=== PATIENT | male | born 1980 | race African-American/Black ===

== ENCOUNTER → 2020-05-23 08:50 | Outpatient (BNVA) | payer OTHER, SELFPAY | PROVIDERS: PCP Family Medicine; Visit Provider Nurse Practitioner | DX: Z76.89 Persons encountering health services in other specified circumstances (principal) ==

== ENCOUNTER → 2020-07-24 09:15 | Outpatient (BNVA) | payer OTHER, SELFPAY | PROVIDERS: PCP Family Medicine; Visit Provider Nurse Practitioner ==

== ENCOUNTER → 2020-10-07 09:55 | Outpatient (BNVA) | payer OTHER, SELFPAY | PROVIDERS: PCP Family Medicine; Visit Provider Nurse Practitioner ==

== ENCOUNTER 2020-11-05 10:36 | Outpatient (REF) | payer OTHER, SELFPAY ==
[2020-11-05 12:10] LABS: MANUAL DIFF FLAG NO
[2020-11-05 12:15] LABS: Basophils Absolute Auto 0.1 X10*3/uL (0.0-0.2); Basophils Percent Auto 0.7 % (0-2); Eosinophils Absolute Auto 0.3 X10*3/uL (0.0-0.4); Eosinophils Percent Auto 3.8 % (0-4); Hematocrit 39.8 % (42-52); Hemoglobin 13.4 g/dl (14.0-18.0); Imm Gran Abs Auto 0.02 X10*3/uL (0.00-0.03); Imm Gran Pct Auto 0.3 % (0.0-0.4); Lymphocytes Absolute Auto 3.3 X10*3/uL (1.2-4.9); Lymphocytes Percent Auto 44.5 % (20-40); Mean Corpuscular HGB Conc 33.7 g/dl (31.0-36.0); Mean Corpuscular Hemoglobin 30.3 pg (27.0-33.0); Mean Platelet Volume 9.8 fL (9.4-12.4); Monocytes Absolute Auto 0.4 X10*3/uL (0.1-1.2); Monocytes Percent Auto 5.9 % (2-11); Neutrophils Absolute Auto 3.3 X10*3/uL (2.0-8.3); Neutrophils Percent Auto 44.8 % (45-73); Platelet Count 302 X10*3/uL (160-400); Red Blood Count 4.42 X10*6/uL (4.60-5.80); Red Cell Distribution Width 12.9 % (11.0-16.0); White Blood Count 7.4 X10*3/uL (4.8-10.8)
[2020-11-05 12:35] LABS: D Dimer < 200 NG/ML
[2020-11-05 12:37] LABS: Alanine Aminotransferase 24 U/L (0-40); Albumin Level 4.1 g/dL (3.5-5.0); Alkaline Phosphatase 71 U/L (39-117); Anion Gap 10 (12-20); Aspartate Amino Transferase 16 U/L (5-37); Bilirubin Total 0.6 mg/dL (0.0-1.0); Blood Urea Nitrogen 8 mg/dL (9-16); Calcium 9.1 mg/dL (8.4-10.2); Carbon Dioxide 29 mmol/L (22-29); Chloride 104 mmol/L (96-108); Estimated Glomerular Filt Rate > 60; Glucose Random 91 mg/dL (60-115); Potassium 4.4 mmol/L (3.3-5.1); Sodium 139 mmol/L (135-145)
[2020-11-05 12:44] LABS: B Type Natriuretic Peptide < 10 pg/mL (<100)
[2020-11-05 12:57] LABS: TSH reflex Free T4 2.55 uIU/mL (0.32-4.0)
== END 2020-11-05 10:37 | disposition home or self-care (01) ==
LOC: HO.LAB 10:36
PROVIDERS: PCP Family Medicine; Referring Provider Family Medicine; Visit Provider Nurse Practitioner
DX: R10.13 Epigastric pain (principal); R11.2 Nausea with vomiting, unspecified; K59.00 Constipation, unspecified; K29.50 Unspecified chronic gastritis without bleeding; R63.4 Abnormal weight loss; E13.9 Other specified diabetes mellitus without complications; M79.89 Other specified soft tissue disorders
CPT/HCPCS: 36415; 80053; 83880; 84443; 85025; 85379; 99202

== ENCOUNTER → 2020-12-02 15:21 | Outpatient (BNVA) | payer OTHER, SELFPAY | PROVIDERS: Visit Provider Nurse Practitioner ==

== ENCOUNTER → 2021-01-09 15:51 | Outpatient (BNVA) | payer OTHER, SELFPAY | PROVIDERS: Visit Provider Nurse Practitioner ==

== ENCOUNTER → 2021-02-17 16:01 | Outpatient (BNVA) | payer OTHER, SELFPAY | PROVIDERS: Visit Provider Nurse Practitioner ==

== ENCOUNTER 2021-04-08 09:39 | Day surgery (SDC) | payer OTHER, SELFPAY ==
--- NOTE | 2021-04-07 14:07 | P.CONAN_ITS ---
Documented by User: Keeley Betancourt NP 04/07/21 14:13 HPI - Anesthesia Eval Consult details Narrative: 40yo M for Colonoscopy Methadone daily PMFSH Active Problems Active Problems: All Active Problems (Updated 04/03/21 @ 12:10 by Yasmeen Yuan RN) Chronic gastritis (Acute) Epigastric pain (Acute) Nausea and vomiting (Acute) Weight loss (Acute) Polydipsia (Acute) Polyuria (Acute) Leg swelling (Acute) Diabetes (Acute) Chronic idiopathic constipation (Acute) Family history of malignant neoplasm of colon in relative diagnosed when younger than 50 years of age (Acute) Past Medical History Medical History (Updated 04/03/21 @ 12:10 by Yasmeen Yuan RN) Constipation Hiatal hernia Hx of gastritis Methadone use Smoker Varicose vein of leg Family History Family History Father HTN (hypertension) Mother Diabetes Heart problem Surgical History Surgical History (Updated 04/03/21 @ 12:04 by Yasmeen Yuan RN) History of esophagogastroduodenoscopy (EGD) Hx of facial fracture repair Social History Social History Household Members: Spouse and Children Household Members Other:: spouse, 3 children Alcohol intake: never Patient Tobacco Use Status: Current everyday Tobacco user Tobacco use type: Cigarette Cigarette Packs Per Day: 1 Cigarettes Per Day: 20.0 Years Smoked: 25 Smoked in Last 30 Days: Yes Use of substances other than those prescribed or required for medical reasons: Yes Substance Use Type: Marijuana Substance Use Frequency: Daily Are you DNR?: No Advance Directives: No Advance Directives Information Provided: No Current occupational status: unemployed Meds Allergies Allergy/AdvReac Type Severity Reaction Status Date / Time Vicodin Allergy Unknown sweating,vo Verified 02/17/21 16:01 miting Home Medications Medication Instructions Recorded Confirmed Last Taken Type docusate sodium 100 mg capsule 1 cap PO DAILY 04/03/21 04/03/21 Unknown History methadone 10 mg/mL oral concentrate 85 mg PO DAILY 04/03/21 04/03/21 04/08/21 History Exam Exam Date and Time: April 07, 2021 1407 Pertinent Lab Results Pertinent Lab Results: Laboratory Tests 11/05/20 11/05/20 11:42 11:42 WBC 7.4 Hgb 13.4 L Hct 39.8 L Plt Count 302 Sodium 139 Potassium 4.4 Chloride 104 Carbon Dioxide 29 BUN 8 L Creatinine 1.02 Assessment and Plan Assessment Anesthesia Assessment: Chart Reviewed Documented by User: Shay Lombardi MD 04/08/21 10:17 [facility] Past Medical History Medical History (Updated 04/03/21 @ 12:10 by Yasmeen Yuan RN) Constipation Hiatal hernia Hx of gastritis Methadone use Smoker Varicose vein of leg Family History Family History Father HTN (hypertension) Mother Diabetes Heart problem Surgical History Surgical History (Updated 04/03/21 @ 12:04 by Yasmeen Yuan RN) History of esophagogastroduodenoscopy (EGD) Hx of facial fracture repair Social History Social History Household Members: Spouse and Children Household Members Other:: spouse, 3 children Alcohol intake: never Patient Tobacco Use Status: Current everyday Tobacco user Tobacco use type: Cigarette Cigarette Packs Per Day: 1 Cigarettes Per Day: 20.0 Years Smoked: 25 Smoked in Last 30 Days: Yes Use of substances other than those prescribed or required for medical reasons: Yes Substance Use Type: Marijuana Substance Use Frequency: Daily Are you DNR?: No Advance Directives: No Advance Directives Information Provided: No Current occupational status: unemployed Meds Allergies Allergy/AdvReac Type Severity Reaction Status Date / Time Vicodin Allergy Unknown sweating,vo Verified 02/17/21 16:01 miting Home Medications Medication Instructions Recorded Confirmed Last Taken Type docusate sodium 100 mg capsule 1 cap PO DAILY 04/03/21 04/03/21 Unknown History methadone 10 mg/mL oral concentrate 85 mg PO DAILY 04/03/21 04/03/21 04/08/21 History Exam Airway Mallampati Class: II TM Dist: >3cm Neck ROM: Full
--- NOTE | 2021-04-08 09:42 | MHC.SHP ---
Pre-Procedural Eval Section A Date of Service: 04/08/21 Section B Chief Complaint: family hx of malignant neplasm of colon in relati Relevant Family History (Specify if Yes): No Relevant Social History: Other (specify) (THC and smoking) Present Medications: see Short Stay Collaborative assessment Medical History: Significant History (Constipation Hiatal hernia Hx of gastritis Methadone use Smoker Varicose vein of leg) History of Previous Operations: Relevant previous surgery/procedure and date(s) (facial fracture repair) Allergies: Allergies Allergy/AdvReac Type Severity Reaction Status Date / Time Vicodin Allergy Unknown sweating,vo Verified 02/17/21 16:01 miting Review of Systems Sugical H&P ROS: Negative: Constitution, Cardiovascular, Respiratory, Neurological, Psychiatric, Hem-Onc, Allergic/Immunologic, Gastrointestinal, Genitourinary, Musculoskeletal, Integumentary, Endocrine and Eyes/Ears/Nose/Throat Exam Surgical H&P Exam: Normal: HEENT, Normal: Heart, Normal: Lungs, Normal: Extremities, Normal: Abdomen, Normal: Skin and Normal: Neurological Plan Diagnosis/Plan: Unchanged I have reviewed the history and physical and performed a pertinent physical examination on my patient. No changes have occurred unless specified.
[2021-04-08 09:51] VITALS: BP 146/69; PULSE 66; RESP 16; TEMP 36.4; O2SAT 97; BMI 36.9
[2021-04-08] MEDS: Lactated Ringers 1,000 ML 100 ML IVCONT (10:14)
--- NOTE | 2021-04-08 10:53 | P.BOP_ITS ---
Brief Operative Note Date of Service: 04/08/21 Pre-op diagnosis: screening, high risk due to FH of CRC in mother Post-op diagnosis: same Procedure: see op note Surgeon: Ophelia Arreola MD Anesthesia: MAC Was an Forge Shop Machine Repairer used for this Procedure?: No Estimated blood loss (mL): 0 Condition: stable Disposition: PACU
--- NOTE | 2021-04-08 10:53 | W.PM.OPN ---
Operative Note Operative Note Date of Service: 04/08/21 Narrative: Operative Information Procedure Description: Colonoscopy COLONOSCOPY Instrument: Olympus variable stiffness pediatric scope 190L Colonoscopy Monitoring: Vital signs and clinical assessment, continuous EKG monitoring, Pulse oximetry, Carbon Dioxide monitoring and blood pressure monitoring were done throughout the procedure. Colon withdrawal time was 11 minutes. Procedure: The patient was placed in the left lateral decubitis position and pre-procedure medications were administered. After a digital rectal examination of the ano-rectum, the video colonoscope was inserted into the rectum and advanced through the colon to the cecum/TI. The colonoscope was slowly withdrawn in a retrograde panoramic fashion and the colon mucosa was carefully examined including a retroflexed view of the rectum. Findings and interventions are described below. Procedure Difficulty:easy Findings: Terminal Ileum-normal Cecum:normal Ascending Colon: few small diverticula seen Transverse Colon -normal Descending Colon:normal Sigmoid Colon: normal Rectum: Retroflexion with small internal hemorrhoids, grade I Anorectum - normal Colon preparation: Mcnabb Bowel Preparation Scale Right colon; 1 Transverse colon: 2 Left colon; 2 (0 = Unprepared colon segment with mucosa not seen due to solid stool that cannot be cleared. 1 = Portion of mucosa of the colon segment seen, but other areas of the colon segment not well seen due to staining, residual stool and/or opaque liquid. 2 = Minor amount of residual staining, small fragments of stool and/or opaque liquid, but mucosa of colon segment seen well. 3 = Entire mucosa of colon segment seen well with no residual staining, small fragments of stool or opaque liquid) Impression and Post Procedure Diagnosis: internal hemorrhoids diverticular disease Plan: High fiber diet leaflet Avoid straining at stool, epsom salts and sitz bath, anusol supps or cream Repeat Colonoscopy in 3 years due to right sided prep or earlier if clinically indicated Above findings were reviewed with the patient and relevant handouts were provided if indicated.
[2021-04-08 10:59] VITALS: BP 97/51; PULSE 70; RESP 12; TEMP 36.3; O2SAT 93
[2021-04-08 11:26] VITALS: BP 105/66; PULSE 67; RESP 16; TEMP 36.3; O2SAT 96
== END 2021-04-08 12:21 | disposition home or self-care (01) ==
PROVIDERS: PCP Family Medicine; Visit Provider Internal Medicine Gastroenterology
PROC: 0DJD8ZZ Inspection of Lower Intestinal Tract, Via Natural or Artificial Opening Endoscopic (ICD-10-PCS; CPT 45378; principal; 2021-04-08 11:00)
DX: Z12.11 Encounter for screening for malignant neoplasm of colon (principal); Z80.0 Family history of malignant neoplasm of digestive organs; K57.30 Diverticulosis of large intestine without perforation or abscess without bleeding; K64.0 First degree hemorrhoids; K59.04 Chronic idiopathic constipation; K29.50 Unspecified chronic gastritis without bleeding; Z79.899 Other long term (current) drug therapy; Z88.8 Allergy status to other drugs, medicaments and biological substances; F17.210 Nicotine dependence, cigarettes, uncomplicated
CPT/HCPCS: 45378

== ENCOUNTER 2023-03-08 10:58 | Outpatient (AMB) | payer OTHER, SELFPAY ==
--- NOTE | 2023-03-08 11:01 | MHC.PC.OV ---
Vital Signs 03/08/23 11:04 Height 5 ft 9 in Weight 220 lb 8 oz BMI 32.6 BP 126/82 Blood Pressure Location Rt brachial Position Sitting Respiration 12 Pulse 68 Pulse Source Pulse Oximeter Temp 97.8 F Temp Source Temporal Artery Scan Pulse Oximetry (%) 99 Oxygen Delivery Method Room Air Intake Visit Reasons: EST CARE Intake Note: Patient states that he believes something is wrong with his shoulder. Patient states that he has restriction in movement in his right arm and when he tries to bend or move it a certain way it hurts. Patient states that when anything touches his leg its like his skin starts peeling. Patient states that he was itching his leg yesterday and it led to him having a open cut on leg. Patient also states that he has random jitters that sometimes takes a while to subside. Patient states that he has also been experiencing cramping in legs. Patient also wanted it yo be known that diabetes runs in family and he does not know if any of his complaints are stemmed from possible diabetes. 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 Accompanied by: Self / Same As Patient Allergies acetaminophen [From Vicodin] Allergy (Unknown, Verified 03/08/23 11:17) Sweating, vomiting hydrocodone [From Vicodin] Allergy (Unknown, Verified 03/08/23 11:17) Sweating, vomiting Medication List - Last Reviewed 03/08/23 by Emely Rivas MA methadone 68 mg PO DAILY Tobacco use date assessed: 03/08/23 Dental Screening Dental Screen Date: 03/08/23 Did you have a dental visit in the last 12 months?: No Did you have a dental problem in the last 6 months where you did not have access to dental care?: No Was dental information given to patient?: Patient has dentist HPI HPI Comments History of Present Illness Details 42-year-old male presents to [facility] care He note he was last evaluated by his former PCP 2-3 years ago. His last blood work was in 2020 He has h/o chronic gastritis. No acute symptoms or current medications. 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 He is currently on 68 mg of methadone daily. He goes to [facility]. He reports intermittent soreness to his right shoulder, worst with ROM for the past 3-4 months. He states he was evaluated at an urgent care clinic at the onset of his symptoms and was given stretching exercise instructions which have not been effective. He denies acute symptoms at this time. 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 He reports history of anxiety and depression. He notes he has not taking psychotropic medications or see a therapist or psychiatrist in the past 26-27 years. He states sertraline was effective. He notes skin tear to the skin of his right wiley from scratching the area. He reports intermittent itching to the skin of her bilateral lower extremity. He states he has been smoking approximately 10 cigarettes daily for the past 25 years. He states he is sexually active, in a monogamous relationship, no concerns for STD. He had colonoscopy done at [facility] on 04/2023 with the following results: Impression and Post Procedure Diagnosis: internal hemorrhoids diverticular disease The plan was to follow up with GI in 3 years. FMH: Mother - diabetes, thyroid disease, colon cancer, HTN [facility] Medical History (Updated 03/08/23 @ 12:09 by Kamaljit Choi CNP) Constipation Hiatal hernia Hx of gastritis Methadone use Smoker Varicose vein of leg Surgical History (Updated 04/03/21 @ 12:04 by Yasmeen Yuna RN) History of esophagogastroduodenoscopy (EGD) Hx of facial fracture repair Family History Father HTN (hypertension) Mother Diabetes Heart problem Social History Household Members: Spouse and Children Household Members Other:: spouse, 3 children Housing: Apartment Alcohol intake: never Patient Tobacco Use Status: Current everyday Tobacco user Tobacco use type: Cigarette Cigarette Packs Per Day: 0.5 Cigarettes Per Day: 10 Years Smoked: 25 Substance Use Type: Marijuana service: No Current occupational status: employed 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 1. Little interest or pleasure in doing things: several days 2. Feeling down, depressed, or hopeless: several days 3. Trouble falling or staying asleep, or sleeping too much: not at all 4. Feeling tired or having little energy: several days 5. Poor appetite or overeating: nearly every day (Poor appetite) 6. Feeling bad about yourself - or that you are a failure or have let yourself or your family down: several days 7. Trouble concentrating on things, such as reading the newspaper or watching television: not at all 8. Moving or speaking so slowly that other people could have noticed. Or the opposite - being so fidgety or restless that you have been moving around a lot more than usual: not at all 9. Thoughts that you would be better off or of hurting yourself in some way: not at all Total score: 7 Depression Screening Interpretation: Positive Depression Screening Follow-up: Existing condition and New Medication prescribed Source: Developed by Drs. Miguel Dhillon, Sol Sheldon, Blaine Garvin and colleagues, with an educational batsheva from [email or web address] Thrive Questionnaire Date Thrive assessed: 03/08/23 I am a: Patient What is your living situation today?: I have a steady place to live Within the past 12 months, did the food you bought not last and you didn't have the money to get more?: Never true Within the past 12 months, did you worry whether your food would run out before you got money to buy more?: Never true Do you have trouble paying for medicines?: No Do you have trouble getting transportation to medical appointments?: No Do you have trouble paying your heating and electricity bill?: No Do you have trouble taking care of your child, family member or friend?: No Do you have trouble with day-to-day activities such as bathing, preparing meals, shopping, managing finances, etc.?: No Are you currently unemployed and looking for a job?: No Are you interested in more education?: No Please select the resources that you would like help with: None Currently or been in a relationship where the following occur: no concerns reported AUDIT C Alcohol Use Questionnaire (AUDIT-C) 1. How often do you have a drink containing alcohol?: Never 3. How often do you have six or more drinks on one occasion?: Never Total Score: 0 ROSMERY-7 AMB Questionnaire ROSMERY-7 Date ROSMERY - 7 assessed: 03/08/23 Feeling nervous, anxious, or on edge: 1 = Several days Not being able to stop or control worryin = Nearly every day Worrying too much about different things: 3 = Nearly every day Trouble relaxin = Nearly every day Being so restless that it is hard to sit still: 2 = More than half the days Becoming easily annoyed or irritable: 0 = Not at all Feeling afraid as if something awful might happen: 2 = More than half the days Total ROSMERY-7 score (0-4 normal; 5-9 mild; 10-14 moderate; 15-21 severe): 14 Source: Developed by Drs. Miguel Dhillon, Sol Sheldon, Blaine Garvin and colleagues, with an educational batsheva from [email or web address] Review of Systems Const Details: Denies chills, Denies fatigue, Denies fever(s), Denies headache(s) and Denies weakness HEENT Denies change in vision, Denies dizziness, Denies headache(s), Denies hearing loss, Denies nasal congestion, Denies sinus pain, Denies sinus pressure and Denies sore throat Card Denies chest pain, Denies lightheadedness, Denies dyspnea and Denies other (palpitations) Resp Denies cough, Denies dyspnea and Denies wheezing GI Denies abdominal pain, Denies melena, Denies hematochezia, Denies change in bowel habits, Denies dyspepsia and Denies nausea Denies hematuria and Denies dysuria Musc Denies abnormal gait, Denies myalgias, Denies arthralgias, Denies numbness and Denies tingling Skin/Breast Reports skin tear to his right wiley, Denies rash, and Denies unusual bruising Neuro Denies abnormal gait, Denies dizziness, Denies headache(s), Denies memory loss, Denies numbness, Denies Sensory deficit (Neuro), Denies tingling and Denies weakness Psych Reports anxiety, Reports depression and Denies memory loss Endo Denies cold intolerance, Denies fatigue, Denies heat intolerance, Denies polydipsia and Denies polyuria Alex/Lymph Denies easy bleeding and Denies easy bruising Aller/Immun Denies wheezing Physical exam (Primary Care) Vital Signs: Last Vital Signs Temp 97.8 F 03/08/23 11:04 Pulse 68 03/08/23 11:04 Resp 12 03/08/23 11:04 BP 126/82 03/08/23 11:04 Pulse Ox 99 03/08/23 11:04 Oxygen Delivery Method Room Air 03/08/23 11:04 BMI result Body Mass Index 32.6 Tobacco/Smoking Status: Tobacco use Status Patient Tobacco Use Status Current everyday Tobacco 04/08/21 10:56 Tobacco use type Cigarette 04/08/21 09:51 Depression Screening Interpretation: Positive Depression Screening Follow-up: Existing condition and New Medication prescribed Currently or been in a relationship where the following occur: no concerns reported Const Other: General: no acute distress, well developed, alert and awake Nutritional Appearance: well nourished Orientation/consciousness: patient oriented x3 HENMT Head: Yes normocephalic and Yes atraumatic Ears: hearing grossly normal bilaterally and TM's normal bilaterally General nose exam: Normal external nose present and Normal nares present Mouth: Normal oral and palatal mucosa present and moist mucous membranes Teeth and gingiva: Full upper denture. No teeth to lower gum. Normal gum Throat: Yes oropharynx normal Eyes Pupils: Equal, round and reactive pupils present and Pupil accommodation reflex normal EOM: EOMs intact bilaterally Neck Neck: Yes normal visual inspection, Yes no lymphadenopathy and Yes trachea midline Thyroid: Thyroid normal Carotids: no bruits Lymphatic: no lymphadenopathy noted Chest Chest palpation & inspection: normal inspection of the chest Resp Effort & Inspection: normal respiratory effort Auscultation: clear to auscultation bilaterally Cardio Rate: regular rate Rhythm: regular rhythm Heart sounds: S1 normal heart sound present, S2 normal heart sound present, no gallops, no murmurs and no rubs Bruits: no abdominal aortic bruits and no carotid bruits GI Palpation (GI): No Abdominal aortic bruit present, Soft to palpation, nontender, No hepatosplenomegaly present and No Rebound tenderness present Auscultation: normal bowel sounds General: Yes no CVA tenderness Back/Spine/Pelvis Back: no CVA tenderness Cervical Spine: cervical ROM normal and No Cervical spine tenderness Thoracic/Lumbar Spine: thoraco-lumbar ROM normal, No pain with thoraco-lumbar ROM, No thoracic spinal tenderness and No lumbar spinal tenderness Skin General: warm and dry. Normal skin color. Normal skin turgor Lesions: no lesions Rashes: no rashes Trauma: no lacerations or abrasions Wounds: Small abrasion to the right wiley, no bleeding, edema, erythema, or overt infection Nails: normal Neuro General: patient oriented x3, gait normal and CN's II-XI intact bilaterally Cranial nerves: Yes Equal, round and reactive pupils present Cognition (Neuro): normal cognition Gait exam (Neuro): Normal gait present Motor exam (neuro): 5/5 motor strength present throughout Sensory Exam: No Sensory deficit (Neuro) Deep tendon reflexes (DTR's): Right patellar reflex intensity grade: 2+ and Left patellar reflex intensity grade: 2+ Extrem General: Yes normal to inspection, No edema and No calf tenderness Psych Appearance: grossly normal Affect: normal affect Attitude: cooperative Thought process: Normal thought process present Assessment and Plan Assessment & Plan (1) Normal physical examination, routine: Code(s): Z00.00 - Encounter for general adult medical examination without abnormal findings Plan: No significant physical restrictions or limitations noted Encouraged to get fasting blood work done before his next visit Return in 1 month for anxiety, depression, and labs review Follow-up sooner with concerns or worsening symptoms Verbalized understanding and agreed with treatment plan. (2) Chronic right shoulder pain: Code(s): M25.511 - Pain in right shoulder; G89.29 - Other chronic pain Plan: He reports intermittent soreness to his right shoulder, worst with ROM for the past 3-4 months. He states he was evaluated at an urgent care clinic at the onset of his symptoms and was given stretching exercise instructions which have not been effective. No associated tingling, numbness, or weakness. He denies acute symptoms at this time. 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 Naproxen ordered. Take as prescribed Warm/cold compresses and stretching encouraged Referred to PT Return with worsening or new symptoms Verbalized understanding and agreed with treatment plan. (3) Anxiety and depression: Code(s): F41.9 - Anxiety disorder, unspecified; F32.A - Depression, unspecified Plan: PHQ-9 and ROSMERY-7 scores revealed mild depression and moderate anxiety respectively Sertraline ordered. Take as prescribed Routine exercise encouraged Referred to the community navigator to assist with connecting him to a therapist Routine exercise encouraged Follow-up in 1 month Return sooner with worsening or new symptoms Verbalized understanding and agreed with treatment plan. (4) Abrasion of lower leg: Code(s): S80.819A - Abrasion, unspecified lower leg, initial encounter Plan: He notes skin tear to the skin of his right wiley from scratching the area. He reports intermittent itching to the skin of her bilateral lower extremity. Small abrasion to the right wiley, no bleeding, edema, erythema, or overt infection Encouraged to avoid intense scratching of his skin May use hydrocortisone cream for itching Follow-up with worsening or new signs and symptoms Verbalized understanding and agreed with treatment plan. (5) Smoker: Code(s): F17.200 - Nicotine dependence, unspecified, uncomplicated Plan: He states he has been smoking approximately 10 cigarettes daily for the past 25 years Instructed on the serious health risks and complications of cigarette smoking Smoking cessation encouraged He may contact his PCP for treatment for smoking cessation Verbalized understanding and agreed with treatment plan. (6) Laboratory tests ordered as part of a complete physical exam (CPE): Code(s): Z00.00 - Encounter for general adult medical examination without abnormal findings Plan: Fasting labs ordered as part of a complete physical exam. Advised to fast for at least 10 hours before getting labs drawn. May drink water Verbalized understanding and agreed with treatment plan. Orders: Orders Comprehensive [place]. Panel Fast Today Z00.00 - Encounter for general adult medical examination without abnormal findings Lipid Panel Today Z00.00 - Encounter for general adult medical examination without abnormal findings TSH reflex Free T4 Today Z00.00 - Encounter for general adult medical examination without abnormal findings Complete Blood Count Auto Diff Today Z00.00 - Encounter for general adult medical examination without abnormal findings UA CC w/rflx Micro + Cult Today Z00.00 - Encounter for general adult medical examination without abnormal findings PT Evaluation and Treatment Today G89.29 - Other chronic pain, M25.511 - Pain in right shoulder Referrals Nurse Navigator Referral F32.A - Depression, unspecified, F41.9 - Anxiety disorder, unspecified Medications: New naproxen 500 mg PO BID 30 days PRN 60 tabs 0RF pain sertraline 50 mg PO DAILY 30 days 30 tabs 3RF Coding Level of Care Code New Pt Level 3 (45476) New Pt Prev Care 40-64y(54560) Diagnoses Normal physical examination, routine Z00.00 Chronic right shoulder pain M25.511; G89.29 Anxiety and depression F41.9; F32.A Abrasion of lower leg S80.819A Smoker F17.200 Laboratory tests ordered as part of a complete physical exam (CPE) Z00.00
[2023-03-08 11:04] VITALS: BP 126/82; PULSE 68; RESP 12; TEMP 36.6; O2SAT 99; BMI 32.6
== END 2023-03-08 12:00 | disposition home or self-care (01) ==
PROVIDERS: PCP Family Medicine; Visit Provider Nurse Practitioner Family
DX: Z00.00 Encounter for general adult medical examination without abnormal findings (principal); F41.9 Anxiety disorder, unspecified; F17.210 Nicotine dependence, cigarettes, uncomplicated; M25.511 Pain in right shoulder; G89.29 Other chronic pain; F32.A Depression, unspecified; S80.811A Abrasion, right lower leg, initial encounter
CPT/HCPCS: 99386

== ENCOUNTER 2023-03-11 11:26 | Outpatient (REF) | payer OTHER, SELFPAY ==
[2023-03-11 13:17] LABS: MANUAL DIFF FLAG NO
[2023-03-11 13:26] LABS: Appearance Urine Clear; Color Urine Yellow; Glucose Urine UA Negative (Negative); Leukocyte Esterase Urine Negative (Negative); Nitrite Urine Negative (Negative); PH 7.5 (5.0-9.0); Urine Blood Negative (Negative); Urine Ketones Negative (Negative); Urine Protein Negative (Neg-Trace)
[2023-03-11 13:31] LABS: Basophils Percent Auto 0.7 % (0-2); Eosinophils Absolute Auto 0.2 X10*3/uL (0.0-0.4); Eosinophils Percent Auto 3.3 % (0-4); Hematocrit 39.9 % (42.0-52.0); Hemoglobin 13.6 g/dl (14.0-18.0); Imm Gran Abs Auto 0.01 X10*3/uL (0.00-0.03); Imm Gran Pct Auto 0.2 % (0.0-0.4); Lymphocytes Absolute Auto 2.6 X10*3/uL (1.2-4.9); Mean Corpuscular HGB Conc 34.1 g/dl (31.0-36.0); Mean Corpuscular Hemoglobin 29.8 pg (27.0-33.0); Mean Corpuscular Volume 87.5 fL (80.0-98.0); Monocytes Absolute Auto 0.3 X10*3/uL (0.1-1.2); Monocytes Percent Auto 4.7 % (2-11); Neutrophils Absolute Auto 2.7 x10*3/uL (2.0-8.3); Neutrophils Percent Auto 46.1 % (45-73); Platelet Count 281 X10*3/uL (160-400); Red Blood Count 4.56 X10*6/uL (4.60-5.80); Red Cell Distribution Width 12.5 % (11.0-16.0); White Blood Count 5.8 X10*3/uL (4.8-10.8)
[2023-03-11 13:56] LABS: Alanine Aminotransferase 16 U/L (0-40); Albumin Level 4.3 g/dL (3.5-5.0); Alkaline Phosphatase 65 U/L (39-117); Anion Gap 10 (12-20); Aspartate Amino Transferase 19 U/L (5-37); Blood Urea Nitrogen 17 mg/dL (9-16); Calcium 9.3 mg/dL (8.4-10.2); Carbon Dioxide 29 mmol/L (22-29); Chloride 102 mmol/L (96-108); Cholesterol 172 mg/dL (<200); Estimated Glomerular Filt Rate > 60; Glucose Fasting 104 mg/dL (60-99); HDL Cholesterol 35 mg/dL (>40); LDL Cholesterol Calculated 114 mg/dL (<100); Potassium 4.2 mmol/L (3.3-5.1); Sodium 137 mmol/L (135-145); Total Protein 7.6 g/dL (6.5-8.0); Triglycerides 116 mg/dL (<150)
[2023-03-11 14:16] LABS: TSH reflex Free T4 1.23 uIU/mL (0.32-4.0)
== END 2023-03-11 11:27 | disposition home or self-care (01) ==
LOC: HO.HMGCLDS 11:26
PROVIDERS: PCP Nurse Practitioner Family; Visit Provider Nurse Practitioner Family
DX: Z00.00 Encounter for general adult medical examination without abnormal findings (principal)
CPT/HCPCS: 36415; 80053; 80061; 81003; 84443; 85025

== ENCOUNTER 2023-04-06 09:00 | Outpatient (AMB) | payer OTHER, SELFPAY ==
--- NOTE | 2023-04-06 09:09 | MHC.PC.OV ---
Vital Signs 04/06/23 09:10 Height 5 ft 9 in Weight 224 lb 8 oz BMI 33.1 BP 126/78 Blood Pressure Location Lt brachial Position Sitting Pulse 82 Pulse Source Pulse Oximeter Temp 98.3 F Temp Source Oral Pulse Oximetry (%) 97 Oxygen Delivery Method Room Air Intake Visit Reasons: 1 mos anxiety, depression, labs review Intake Note: Patient is here to follow up on anxiety and depression, states his body feels weird on the medication, his states his body sweats a lot on the medication. Allergies acetaminophen [From Vicodin] Allergy (Unknown, Verified 04/06/23 09:30) Sweating, vomiting hydrocodone [From Vicodin] Allergy (Unknown, Verified 04/06/23 09:30) Sweating, vomiting Medication List - Last Reconciled 04/06/23 by Kamaljit Choi CNP methadone 68 mg PO DAILY naproxen 500 mg PO BID PRN 30 days sertraline 50 mg PO DAILY 30 days Tobacco use date assessed: 04/06/23 HPI HPI Comments History of Present Illness Details 42-year-old male presents for anxiety, depression, and labs review follow-up. He establish care on 03/08/2023 and had routine blood work done. He noted history of anxiety and depression. Sertraline 50 mg daily was prescribed for anxiety and depression. He notes that he has been taking Sertraline as prescribed. He states he experiences mild sweating approximately 1-2 hours after taking the medication, lasting for about 1 hour. He reports improved anxiety and depression symptoms on the medication. He was referred to the community navigator for a referral to a therapist, however, he states that he has not been contacted for an appointment with a therapist. He denies acute symptoms at this time. [facility] Medical History (Updated 04/06/23 @ 09:48 by Kamaljit Choi CNP) Methadone use Varicose vein of leg Smoker Hx of gastritis Hiatal hernia Constipation Surgical History Hx of facial fracture repair History of esophagogastroduodenoscopy (EGD) Family History Father HTN (hypertension) Mother Diabetes Heart problem Social History Household Members: Spouse and Children Household Members Other:: spouse, 3 children Housing: Apartment Alcohol intake: never Patient Tobacco Use Status: Current everyday Tobacco user Tobacco use type: Cigarette Cigarette Packs Per Day: 0.5 Cigarettes Per Day: 10 Years Smoked: 25 e-Cigarette/Vaping Use: Currently Using Substance Use Type: Marijuana service: No Current occupational status: employed Current occupation: [employer] Cognitive needs: No Hearing needs: No Vision needs: Yes Questionnaire PHQ-9 Over the last 2 weeks, how often have you been bothered by any of the following problems? 1. Little interest or pleasure in doing things: several days 2. Feeling down, depressed, or hopeless: several days 3. Trouble falling or staying asleep, or sleeping too much: several days 4. Feeling tired or having little energy: not at all 5. Poor appetite or overeating: not at all 6. Feeling bad about yourself - or that you are a failure or have let yourself or your family down: more than half the days 7. Trouble concentrating on things, such as reading the newspaper or watching television: not at all 8. Moving or speaking so slowly that other people could have noticed. Or the opposite - being so fidgety or restless that you have been moving around a lot more than usual: not at all 9. Thoughts that you would be better off or of hurting yourself in some way: not at all Total score: 5 Depression Screening Interpretation: Positive Depression Screening Follow-up: Existing condition Depression Screening Done: Yes Source: Developed by Drs. Miguel Dhillon, Sol Sheldon, Blaine Garvin and colleagues, with an educational batsheva from [employer]. Thrive Questionnaire Date Thrive assessed: 03/08/23 ROSMERY-7 AMB Questionnaire ROSMERY-7 Date ROSMERY - 7 assessed: 03/08/23 Feeling nervous, anxious, or on edge: 2 = More than half the days Not being able to stop or control worryin = More than half the days Worrying too much about different things: 2 = More than half the days Trouble relaxin = Several days Being so restless that it is hard to sit still: 0 = Not at all Becoming easily annoyed or irritable: 0 = Not at all Feeling afraid as if something awful might happen: 1 = Several days Total ROSMERY-7 score (0-4 normal; 5-9 mild; 10-14 moderate; 15-21 severe): 8 Source: Developed by Drs. Miguel Dhillon, Sol Sheldon, Blaine Garvin and colleagues, with an educational batsheva from [employer]. Review of Systems Const Details: Const Denies chills, Denies fatigue, Denies fever(s), Denies headache(s) and Denies weakness ENT Denies dizziness and Denies headache(s) Card Denies chest pain, Denies lightheadedness, Denies dyspnea and Denies other (Palpitations) Resp Denies cough, Denies dyspnea, Denies wheezing and Denies other ( shortness of breath) GI Denies abdominal pain, Denies melena, Denies hematochezia, Denies change in bowel habits, Denies dyspepsia and Denies nausea Denies hematuria and Denies dysuria Musc Right shoulder pain, Denies abnormal gait, Denies numbness and Denies tingling Skin/Breast Denies rash, Denies unusual bruising and Denies wounds Neuro Denies abnormal gait, Denies dizziness, Denies headache(s), Denies memory loss, Denies numbness, Denies Sensory deficit (Neuro), Denies tingling and Denies weakness Psych Denies anxiety, Denies depression, Denies memory loss Endo Denies cold intolerance, Denies fatigue, Denies heat intolerance, Denies polydipsia and Denies polyuria Aller/Immun Denies wheezing Physical exam (Primary Care) Vital Signs: Last Vital Signs Temp 98.3 F 04/06/23 09:10 Pulse 82 04/06/23 09:10 BP 126/78 04/06/23 09:10 Pulse Ox 97 04/06/23 09:10 Oxygen Delivery Method Room Air 04/06/23 09:10 BMI result Body Mass Index 33.1 Tobacco/Smoking Status: Tobacco use Status Tobacco use date assessed 04/06/23 04/06/23 09:13 Patient Tobacco Use Status Current everyday Tobacco 04/06/23 09:13 Tobacco use type Cigarette 04/06/23 09:13 e-Cigarette/Vaping Use Currently Using 04/06/23 09:13 PHQ-9: PHQ-9 Score PHQ-9: Total score 5 04/06/23 09:35 Depression Screening Interpretation: Positive Depression Screening Follow-up: Existing condition Thrive Assessment: Date of Thrive Assessment Date Thrive assessed 03/08/23 04/06/23 09:13 Const Other: General: no acute distress and well developed Nutritional Appearance: well nourished Orientation/consciousness: patient oriented x3 HENMT Head: Yes normocephalic and Yes atraumatic Eyes General: appearance normal, both eyes and all related structures Pupils: Equal, round and reactive pupils present EOM: EOMs intact bilaterally Resp Effort & Inspection: normal respiratory effort Auscultation: clear to auscultation bilaterally Cardio Rate: regular rate Rhythm: regular rhythm Heart sounds: S1 normal heart sound present, S2 normal heart sound present, no gallops, no murmurs and no rubs GI Palpation (GI): No Abdominal aortic bruit present, Soft to palpation, nontender, No hepatosplenomegaly present and No Rebound tenderness present Auscultation: normal bowel sounds General: Yes no CVA tenderness Back/Spine/Pelvis Back: no CVA tenderness Cervical Spine: cervical ROM normal and No Cervical spine tenderness Thoracic/Lumbar Spine: thoraco-lumbar ROM normal, No pain with thoraco-lumbar ROM, No thoracic spinal tenderness and No lumbar spinal tenderness Extrem General: Yes normal to inspection, No edema and No calf tenderness Limited ROM of the right shoulder Skin General: warm and dry. Normal skin color. Normal skin turgor Lesions: no lesions Rashes: no rashes Trauma: no lacerations or abrasions Wounds: no wounds Nails: normal Neuro General: patient oriented x3, gait normal and no focal neuro deficit Cranial nerves: Yes Equal, round and reactive pupils present Cognition (Neuro): normal cognition Gait exam (Neuro): Normal gait present Sensory Exam: No Sensory deficit (Neuro) Psych Appearance: grossly normal Affect: normal affect Attitude: cooperative Thought process: Normal thought process present Assessment and Plan Assessment & Plan (1) Anxiety and depression: Code(s): F41.9 - Anxiety disorder, unspecified; F32.A - Depression, unspecified Plan: PHQ-9 and ROSMERY-7 scores revealed mild depression and anxiety respectively He reports mild sweating on sertraline. Informed that diaphoresis is common side effect of sertraline Advised to continue to take sertraline as prescribed Routine exercise encouraged Message sent to the community navigator informing him that the patient notes he has not been contacted to establish with a therapist. The community navigator was as to facilitate the process Follow-up in 1 month or return sooner with worsening or new symptoms or worsening adverse reaction of the medication. Would decrease the dose Verbalized understanding and agreed with treatment plan. (2) Elevated fasting glucose: Code(s): R73.01 - Impaired fasting glucose Plan: Recent lab results reviewed with the patient Fasting glucose was slightly elevated, 104 He has family history of diabetes Will repeat fasting glucose. Advised to fast for at least 10-12 hours for getting blood work done Follow-up in 1 month or return sooner with symptoms or concerns Verbalized understanding and agreed with treatment plan. (3) Mild anemia: Code(s): D64.9 - Anemia, unspecified Plan: Recent RBC and H/H were slightly low. He has history of slightly low RBC and H&H levels MCV and RDW were normal No fatigue or weakness Will repeat CBC to monitor trend. May check iron profile, folate, and B12 if repeat RBC and H/H are low Advised to get blood work done before next visit Follow-up in 1 month Verbalized understanding and agreed with treatment plan. (4) High serum low density lipoprotein (LDL) cholesterol: Code(s): R79.89 - Other specified abnormal findings of blood chemistry Plan: Recent LDL level was slightly elevated and HDL level was slightly low Advised to limit foods high in saturated fat and avoid foods high trans fat Routine exercise encouraged Verbalized understanding and agreed with treatment plan. (5) Low HDL (under 40): Code(s): E78.6 - Lipoprotein deficiency Plan: As above (6) Chronic right shoulder pain: Code(s): M25.511 - Pain in right shoulder; G89.29 - Other chronic pain Plan: Patient reports on his to the right shoulder for the past 3-4 months. No history of fall, injury, trauma. He is currently doing physical therapy According to the physical therapist, the patient has not made significant progress despite twice weekly physical therapy for the past 3 weeks Patient advised to continue to take naproxen as prescribed and avoid heavy lifting Warm/cool compresses encouraged Referred to orthopedic Return with worsening or new symptoms Verbalized understanding and agreed with treatment plan. Orders: Orders Glucose Fasting Today R73.01 - Impaired fasting glucose Complete Blood Count no Diff Today D64.9 - Anemia, unspecified Referrals Orthopedics Referral G89.29 - Other chronic pain, M25.511 - Pain in right shoulder Coding Level of Care Code Est Pt Level 3 (70174) Diagnoses Anxiety and depression F41.9; F32.A Elevated fasting glucose R73.01 Mild anemia D64.9 High serum low density lipoprotein (LDL) cholesterol R79.89 Low HDL (under 40) E78.6 Chronic right shoulder pain M25.511; G89.29
[2023-04-06 09:10] VITALS: BP 126/78; PULSE 82; TEMP 36.8; O2SAT 97; BMI 33.1
== END 2023-04-06 09:30 | disposition home or self-care (01) ==
PROVIDERS: PCP Family Medicine; Visit Provider Nurse Practitioner Family
DX: F41.9 Anxiety disorder, unspecified (principal); F32.A Depression, unspecified; R73.01 Impaired fasting glucose; D64.9 Anemia, unspecified; R79.89 Other specified abnormal findings of blood chemistry; E78.6 Lipoprotein deficiency; M25.511 Pain in right shoulder; G89.29 Other chronic pain
CPT/HCPCS: 99214

== ENCOUNTER 2023-04-13 10:00 | Outpatient (RCR) | payer OTHER, SELFPAY ==
--- NOTE | 2023-03-16 13:47 | MHC.PT.EP ---
[facility] [place] Office [place] Office [place] Office [address] [phone] F: [phone] F: [phone] F: [phone] F: [phone] Physical Therapy Plan of Care Date of Evaluation: 03/16/23 Date of Surgery: NA Diagnosis: R SHOULDER PAIN Assessment: Pt IS 42 YO RHD M REFERRED TO PT FROM [employer] WITH R SHLDER PAIN. Pt REPORTS SOME INJURY TO SHLDER YEARS AGO WITH RECENT RE-IRRITATION. 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 PRESENTS WITH DECREASED END RANGE OF MOTION R SHLDER, DECREASED ER STRENGTH, POOR POSTURE, LIMITED ADLS. SHOULD BENEFIT FROM PT TO ADDRESS THESE ISSUES Frequency and Duration: The patient will be seen 2X/WK X 4 WKS Short Term Goals: 1. INCREASED POSTURE AWARENESS AND AWARENESS SHLDER CARE 2. I HEP WITH DC EX PLAN 3. 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 INCREASED R SHLDER ROM 10 DEGREES FOR ABD 2. DECREAESED R SHLDER PAIN AT LEAST 50% WITH ADLS 3. IMPROVED SPADI (61/130 SOC) Treatment Plan: Modalities to reduce pain, spasms and effusion. Manual therapy to restore motion and function. Therapeutic exercise to improve strength and flexibility. Neuromuscular re-education for posture and balance. Therapeutic activities to return to functional activities of daily living. Electronically signed by: FRANCA CLEMENTE PT Please sign and return to therapist. Thank you for your referral.
--- NOTE | 2023-03-25 11:56 | MHC.PT.OD ---
[facility] [place] Office [place] Office [place] Office [address] [place] [phone] F: [phone] F: [phone] F: [phone] F: [phone] Physical Therapy Daily Note Diagnosis: R SHOULDER PAIN Date of Surgery: NA Date of Evaluation: 03/16/23 Date of Treatment: 03/25/23 Treatments to Date: Cancellations to Date: No Shows to Date: Authorized Visits: 4 Insurance End Date: Precautions/ Contraindications:NONE SPECIFIED Subjective: Pt expressing pain is more constant in nature. Pt expressing was sore after visit earlier in the week. Pain Score and Location: 5 R SHLDER Objective Flowsheet: Tests & Measures (+) Weak ER, painful arc, (+) pain with drop arm test (+) Neer Clustering in support of RTC tear as clustering by Kathleen et al Exercises Trial SCI-FIT UE bike increased sx with attempt of three minutes, direction reversed SEATED FOR RAFIA SHLDER FLEX WITH END RANGE. TRIAL OF SCAPTION X 10 SEC HOLD X 5r PEC STRETCH ON FOAM ROLL X 5 MIN, REV DOORWAY PEC STRETCH X 3 R, REV SHLDER ROW AND EXT WITH YELLOW TB X 10 R EA WITH CUES FOR POSTURE/FORM. CHIN TUCK IN STAND AND SUP TO HEP HORIZONTAL ABD TRIALED OVER FOAM ROLLER. SLIGHT PRESSURE TRIALED WITHOUT ROLLER. TRIAL SCREENING FOR SL ER (PUT UNABLE SECONDARY TO PAIN/WEAKNESS) Education support re: use of pillow under arm/UE for sitting/sleeping STM/IASTM HG 7 STRUMMING RESPONSE R SHLDER/UPPER ARM/ RUT (AVOIDING SKIN IRRITATED AREAS) SIGNIF ED RE POSTURE (OF SHLDER AND NECK) T/O SESSION, ICE X 10 MIN R SHLDER AT END OF SESSION WHILE PRACTICING PROPER POSTURE IN SIT WITH PILLOW Modalities Assessment: 03/25/23: PT EXPRESSING CONSTANT PAIN IN R SHOULDER. PT WEAK IN ER, ABD. PT EXPRESSING SX OF HISTORY OF ? DISLOCATION IN 2014 INVOLVING HANDCUFFING ARREST WHICH RESULTED IN INABILITY TO LIFT HIS ARM FOR QUITE SOME TIME AFTERWARDS. PT MAY BENEFIT FROM REFERRAL TO ORTHOPEDICS DUE TO HISTORY OF PAST TRAUMA, CHRONIC NATURE OF SX, CONSTANT PAIN AT REST, AND NIGHT PAIN. PT BENEFIT FROM CUES TO MODIFY ROWS AND EXTENSIONS TO EMPHASIZE SCAPULAR ACTIVATION. PT EXPRESSING POOR TOLERANCE FOR SUPINE AAROM FLEXION/SCAPTION ROM. PT HX SKIN IRRITATION FROM TAPING- HELD TAPING DUE TO THIS. 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 POOR POSTURE, CHALLENGED WITH CHIN TUCK, NEEDED TO LIMIT RANGE WITH ROW AND EXTENSION TO HELP DECREASE SHLDER PAIN PT Plan: POSTURE WORK, RC STRENGTHEN, PEC STRETCH, KT/STM/IASTM PRN, Short Term Goals: 1. INCREASED POSTURE AWARENESS AND AWARENESS SHLDER CARE 2. I HEP WITH DC EX PLAN 3. NO UE PARESTHESIA Chief Counsel Goals: 1. INCREASED R SHLDER ROM 10 DEGREES FOR ABD 2. DECREAESED R SHLDER PAIN AT LEAST 50% WITH ADLS 3. IMPROVED SPADI (61/130 SOC) Electronically signed by: HENRY PENNINGTON, PT, DPT
--- NOTE | 2023-05-13 14:58 | MHC.PT.DC ---
[facility] [place] Office [place] Office [place] Office [address] [phone] F: [phone] F: [phone] F: [phone] F: [phone] Physical Therapy Discharge Report Diagnosis: R SHOULDER PAIN Date of Surgery: NA Date of Evaluation: 03/16/23 Date of Discharge: 05/13/23 Treatments to Date: Cancellations to Date: No Shows to Date: Discharge Status: Recommend MD Follow-up Discharge Summary: Pt LAST SEEN ON 04/13/23. PER ASSESSMENT CONTINUES WITH LIMITED ROM AND SHLDER PAIN . Pt WAS PUT ON HOLD UNTIL AFTER ORTHO APPT WHICH WAS SUPPOSED TO BE 05/12/23. PER CHART HE NO SHOWED. WILL DC PT CHART AT THIS TIME SINCE IT HAS BEEN ALMOST 1 MONTH SINCE LAST SEEN, AND NO ORTHO RECOMMENDATIONS AT THIS TIME Electronically signed by: FRANCA CLEMENTE PT Please sign and return to therapist. Thank you for your referral.
== END 2023-05-13 14:59 | disposition home or self-care (01) ==
LOC: HO.PTWFD 10:00
PROVIDERS: PCP Nurse Practitioner Family; Visit Provider Nurse Practitioner Family
DX: M25.511 Pain in right shoulder (principal); G89.29 Other chronic pain
CPT/HCPCS: 97014; 97110; 97140; 97161; 97530; 97535

== ENCOUNTER 2023-05-12 11:41 | Outpatient (REF) | payer OTHER, SELFPAY | END 2023-05-12 11:42 | disposition home or self-care (01) | LOC: HO.HOSX 11:41 | PROVIDERS: Visit Provider Physician Assistant | DX: Z13.89 Encounter for screening for other disorder (principal) ==

== ENCOUNTER 2023-08-26 16:06 | Outpatient (AMB) | payer OTHER, SELFPAY ==
[2023-08-26 16:15] VITALS: BP 110/72; PULSE 67; RESP 13; TEMP 36.4; O2SAT 96; BMI 33.1
--- NOTE | 2023-08-26 16:15 | MHC.PC.OV ---
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: No Accompanied by: Self / Same As Patient Allergies acetaminophen [From Vicodin] Allergy (Unknown, Verified 08/26/23 16:55) Sweating, vomiting hydrocodone [From Vicodin] Allergy (Unknown, Verified 08/26/23 16:55) Sweating, vomiting Medication List - Last Reconciled 08/26/23 by Kamaljit Choi CNP methadone 68 mg PO DAILY naproxen 500 mg PO BID PRN 30 days sertraline 50 mg PO DAILY 30 days Tobacco use date assessed: 08/26/23 Dental Screening Dental Screen Date: 08/26/23 Did you have a dental visit in the last 12 months?: No Did you have a dental problem in the last 6 months where you did not have access to dental care?: No Was dental information given to patient?: Patient declined HPI HPI Comments History of Present Illness Details 42-year-old male presents for anxiety, depression, anemia, and an elevated fasting glucose follow-up He notes that he has not been taking Sertraline for the past 1 and half month. He states that my body feels weird when i take it. He does not provide more information beyond the medication making him feels weird. He is willing to try another antidepressants He notes that he continues to experience anxiety and depression symptoms but not as much as before. He sees a therapist weekly with some improvement He states that he does not exercise He has not repeat CBC and fasting glucose blood work done [facility] Medical History Methadone use Varicose vein of leg Smoker Hx of gastritis Hiatal hernia Constipation Surgical History Hx of facial fracture repair History of esophagogastroduodenoscopy (EGD) Family History Father HTN (hypertension) Mother Diabetes Heart problem Other Substance abuse Social History Household Members: Spouse and Children Household Members Other:: spouse, 3 children Housing: Apartment Alcohol intake: never Patient Tobacco Use Status: Current everyday Tobacco user Tobacco use type: Cigarette Cigarette Packs Per Day: 0.5 Cigarettes Per Day: 10 Years Smoked: 25 e-Cigarette/Vaping Use: Currently Using Substance Use Type: Marijuana service: No Current occupational status: employed Current occupation: [employer] Cognitive needs: No Hearing needs: No Vision needs: Yes Questionnaire PHQ-9 Over the last 2 weeks, how often have you been bothered by any of the following problems? 1. Little interest or pleasure in doing things: several days 2. Feeling down, depressed, or hopeless: several days 3. Trouble falling or staying asleep, or sleeping too much: nearly every day 4. Feeling tired or having little energy: nearly every day 5. Poor appetite or overeating: nearly every day 6. Feeling bad about yourself - or that you are a failure or have let yourself or your family down: several days 7. Trouble concentrating on things, such as reading the newspaper or watching television: not at all 8. Moving or speaking so slowly that other people could have noticed. Or the opposite - being so fidgety or restless that you have been moving around a lot more than usual: not at all 9. Thoughts that you would be better off or of hurting yourself in some way: not at all Total score: 12 Depression Screening Interpretation: Positive Depression Screening Follow-up: Existing condition, In treatment, New Medication prescribed and Change in Medication Depression Screening Done: Yes 89988 - PHQ-9 Billing: Yes Source: Developed by Drs. Miguel Dhillon, Sol Sheldon, Blaine Garvin and colleagues, with an educational batsheva from [employer]. Thrive Questionnaire Date Thrive assessed: 03/08/23 ROSMERY-7 AMB Questionnaire ROSMERY-7 Date ROSMERY - 7 assessed: 08/26/23 Feeling nervous, anxious, or on edge: 1 = Several days Not being able to stop or control worryin = Nearly every day Worrying too much about different things: 2 = More than half the days Trouble relaxin = Nearly every day Being so restless that it is hard to sit still: 0 = Not at all Becoming easily annoyed or irritable: 0 = Not at all Feeling afraid as if something awful might happen: 0 = Not at all Total ROSMERY-7 score (0-4 normal; 5-9 mild; 10-14 moderate; 15-21 severe): 9 Source: Developed by Drs. Miguel Dhillon, Sol Sheldon, Blaine Garvin and colleagues, with an educational batsheva from [employer]. ROSMERY-7 Assessment Billing ROSMERY-7 Assessment Tool: ROSMERY-7 Assessment 70887 Review of Systems Const Details: Const Denies chills, Denies fatigue, Denies fever(s), Denies headache(s) and Denies weakness ENT Denies dizziness and Denies headache(s) Card Denies chest pain, Denies lightheadedness, Denies dyspnea and Denies other (Palpitations) Resp Denies cough, Denies dyspnea, Denies wheezing and Denies other ( shortness of breath) GI Denies abdominal pain, Denies melena, Denies hematochezia, Denies change in bowel habits, Denies dyspepsia and Denies nausea Denies hematuria and Denies dysuria Musc Denies abnormal gait, Denies myalgias, Denies arthralgias, Denies numbness and Denies tingling Skin/Breast Denies rash, Denies unusual bruising and Denies wounds Neuro Denies abnormal gait, Denies dizziness, Denies headache(s), Denies memory loss, Denies numbness, Denies Sensory deficit (Neuro), Denies tingling and Denies weakness Psych Reports anxiety, Reports depression, Denies memory loss Endo Denies cold intolerance, Denies fatigue, Denies heat intolerance, Denies polydipsia and Denies polyuria Aller/Immun Denies wheezing Physical exam (Primary Care) Vital Signs: Last Vital Signs Temp 97.5 F 08/26/23 16:15 Pulse 67 08/26/23 16:15 Resp 13 08/26/23 16:15 BP 110/72 08/26/23 16:15 Pulse Ox 96 08/26/23 16:15 Oxygen Delivery Method Room Air 08/26/23 16:15 BMI result Body Mass Index 33.1 Tobacco/Smoking Status: Tobacco use Status Tobacco use date assessed 08/26/23 08/26/23 16:23 Patient Tobacco Use Status Current everyday Tobacco 08/26/23 16:23 Tobacco use type Cigarette 08/26/23 16:23 e-Cigarette/Vaping Use Currently Using 08/26/23 16:23 PHQ-9: PHQ-9 Score PHQ-9: Total score 12 08/26/23 16:23 Depression Screening Interpretation: Positive Depression Screening Follow-up: Existing condition, In treatment, New Medication prescribed and Change in Medication Thrive Assessment: Date of Thrive Assessment Date Thrive assessed 03/08/23 08/26/23 16:23 Const Other: General: no acute distress and well developed Nutritional Appearance: well nourished Orientation/consciousness: patient oriented x3 HENMT Head: Yes normocephalic and Yes atraumatic Eyes General: appearance normal, both eyes and all related structures Pupils: Equal, round and reactive pupils present EOM: EOMs intact bilaterally Resp Effort & Inspection: normal respiratory effort Auscultation: clear to auscultation bilaterally Cardio Rate: regular rate Rhythm: regular rhythm Heart sounds: S1 normal heart sound present, S2 normal heart sound present, no gallops, no murmurs and no rubs GI Palpation (GI): No Abdominal aortic bruit present, Soft to palpation, nontender, No hepatosplenomegaly present and No Rebound tenderness present Auscultation: normal bowel sounds General: Yes no CVA tenderness Back/Spine/Pelvis Back: no CVA tenderness Cervical Spine: cervical ROM normal and No Cervical spine tenderness Thoracic/Lumbar Spine: thoraco-lumbar ROM normal, No pain with thoraco-lumbar ROM, No thoracic spinal tenderness and No lumbar spinal tenderness Extrem General: Yes normal to inspection, No edema and No calf tenderness Skin General: warm and dry. Normal skin color. Normal skin turgor Neuro General: patient oriented x3, gait normal and no focal neuro deficit Cranial nerves: Yes Equal, round and reactive pupils present Cognition (Neuro): normal cognition Gait exam (Neuro): Normal gait present Sensory Exam: No Sensory deficit (Neuro) Psych Appearance: grossly normal Affect: normal affect Attitude: cooperative Thought process: Normal thought process present Assessment and Plan Assessment & Plan (1) Anxiety and depression: Code(s): F41.9 - Anxiety disorder, unspecified; F32.A - Depression, unspecified Plan: PHQ-9 and ROSMERY-7 scores revealed moderate depression and mild anxiety respectively Sertraline discontinued Fluoxetine ordered. Take as prescribed Continue to follow-up with weekly therapy Routine exercise encouraged Follow-up in 2 weeks or return sooner with worsening or new symptoms He did not get CBC and fasting glucose blood work done. Advised to get blood work done before his next visit Verbalized understanding and agreed with treatment plan Medications: New fluoxetine 20 mg PO DAILY 30 caps 3RF 30 days Discontinued sertraline Discontinued Reason: Doctor's Order 50 mg PO DAILY 30 tabs 1RF 30 days Coding Level of Care Code Est Pt Level 3 (10348) Diagnoses Anxiety and depression F41.9; F32.A Additional Codes ROSMERY-7 Assessment Billing - ROSMEYR-7 Assessment Tool: ROSMERY-7 Assessment [id number] ([id number])
== END 2023-08-26 17:57 | disposition home or self-care (01) ==
PROVIDERS: PCP Nurse Practitioner Family; Visit Provider Nurse Practitioner Family
DX: F41.9 Anxiety disorder, unspecified (principal); F32.A Depression, unspecified; F17.210 Nicotine dependence, cigarettes, uncomplicated
CPT/HCPCS: 96127; 99213

== ENCOUNTER 2023-09-08 12:57 | Outpatient (REF) | payer OTHER, SELFPAY ==
[2023-09-08 14:25] LABS: Hematocrit 39.5 % (42.0-52.0); Hemoglobin 13.6 g/dl (14.0-18.0); Mean Corpuscular HGB Conc 34.4 g/dl (31.0-36.0); Mean Corpuscular Hemoglobin 29.9 pg (27.0-33.0); Mean Corpuscular Volume 86.8 fL (80.0-98.0); Mean Platelet Volume 10.2 fL (9.4-12.4); Platelet Count 261 X10*3/uL (160-400); Red Blood Count 4.55 X10*6/uL (4.60-5.80); Red Cell Distribution Width 12.5 % (11.0-16.0)
[2023-09-08 14:57] LABS: Glucose Fasting 74 mg/dL (60-99)
== END 2023-09-08 12:58 | disposition home or self-care (01) ==
LOC: HO.LAB 12:57
PROVIDERS: PCP Nurse Practitioner Family; Visit Provider Nurse Practitioner Family
DX: R73.01 Impaired fasting glucose (principal); D64.9 Anemia, unspecified
CPT/HCPCS: 36415; 82947; 85027

== ENCOUNTER 2023-09-12 14:40 | Outpatient (AMB) | payer OTHER, SELFPAY ==
--- NOTE | 2023-09-12 14:43 | MHC.PC.OV ---
Vital Signs 09/12/23 14:44 Height 5 ft 9 in Weight 224 lb 2 oz BMI 33.1 BP 104/70 Blood Pressure Location Rt brachial Position Sitting Respiration 13 Pulse 77 Pulse Source Pulse Oximeter Temp 97.5 F Temp Source Temporal Artery Scan Pulse Oximetry (%) 97 Oxygen Delivery Method Room Air Intake Visit Reasons: f/u anxiety depression, labs Honey Liquefier Required: No Accompanied by: Self / Same As Patient Allergies acetaminophen [From Vicodin] Allergy (Unknown, Verified 09/12/23 14:56) Sweating, vomiting hydrocodone [From Vicodin] Allergy (Unknown, Verified 09/12/23 14:56) Sweating, vomiting Medication List - Last Reconciled 09/12/23 by Kamaljit Choi CNP fluoxetine 20 mg PO DAILY 30 days methadone 58 mg PO DAILY naproxen 500 mg PO BID PRN 30 days Tobacco use date assessed: 08/26/23 Dental Screening Dental Screen Date: 09/12/23 Did you have a dental visit in the last 12 months?: No Did you have a dental problem in the last 6 months where you did not have access to dental care?: No Was dental information given to patient?: Patient has dentist HPI HPI Comments History of Present Illness Details 42-year-old male presents for anxiety, depression, and review of recent blood work follow-up He admits to taking his medications as prescribed without adverse reactions He notes that he has been on methadone for about 2 and half years for history of intranasal Percocets and heroin use He reports controlled anxiety and depression symptoms on fluoxetine He offers no complaints and denies acute symptoms PFSH Medical History Methadone use Varicose vein of leg Smoker Hx of gastritis Hiatal hernia Constipation Surgical History Hx of facial fracture repair History of esophagogastroduodenoscopy (EGD) Family History Father HTN (hypertension) Mother Diabetes Heart problem Other Substance abuse Social History Household Members: Spouse and Children Household Members Other:: spouse, 3 children Housing: Apartment Alcohol intake: never Tobacco use type: Cigarette Cigarette Packs Per Day: 0.5 Cigarettes Per Day: 10 Years Smoked: 25 e-Cigarette/Vaping Use: Currently Using Substance Use Type: Marijuana service: No Current occupational status: employed Current occupation: [employer] Cognitive needs: No Hearing needs: No Vision needs: No Questionnaire PHQ-9 Over the last 2 weeks, how often have you been bothered by any of the following problems? 1. Little interest or pleasure in doing things: nearly every day 2. Feeling down, depressed, or hopeless: nearly every day 3. Trouble falling or staying asleep, or sleeping too much: nearly every day 4. Feeling tired or having little energy: not at all 5. Poor appetite or overeating: nearly every day 6. Feeling bad about yourself - or that you are a failure or have let yourself or your family down: nearly every day 7. Trouble concentrating on things, such as reading the newspaper or watching television: not at all 8. Moving or speaking so slowly that other people could have noticed. Or the opposite - being so fidgety or restless that you have been moving around a lot more than usual: not at all 9. Thoughts that you would be better off or of hurting yourself in some way: not at all Total score: 15 Depression Screening Interpretation: Positive Depression Screening Follow-up: Existing condition and In treatment Depression Screening Done: Yes 35398 - PHQ-9 Billing: Yes Source: Developed by Drs. Miguel Dhillon, Sol Sheldon, Blaine Garvin and colleagues, with an educational batsheva from [employer]. Thrive Questionnaire Date Thrive assessed: 03/08/23 ROSMERY-7 AMB Questionnaire ROSMERY-7 Date ROSMERY - 7 assessed: 09/12/23 Feeling nervous, anxious, or on edge: 2 = More than half the days Not being able to stop or control worryin = Nearly every day Worrying too much about different things: 3 = Nearly every day Trouble relaxin = Nearly every day Being so restless that it is hard to sit still: 0 = Not at all Becoming easily annoyed or irritable: 0 = Not at all Feeling afraid as if something awful might happen: 0 = Not at all Total ROSMERY-7 score (0-4 normal; 5-9 mild; 10-14 moderate; 15-21 severe): 11 Source: Developed by Drs. Miguel Dhillon, Sol Sheldon, Blaine Garvin and colleagues, with an educational batsheva from [employer]. ROSMERY-7 Assessment Billing ROSMERY-7 Assessment Tool: ROSMERY-7 Assessment 69493 Review of Systems Const Details: Const Denies chills, Denies fatigue, Denies fever(s), Denies headache(s) and Denies weakness ENT Denies dizziness and Denies headache(s) Card Denies chest pain, Denies lightheadedness, Denies dyspnea and Denies other (Palpitations) Resp Denies cough, Denies dyspnea, Denies wheezing and Denies other ( shortness of breath) GI Denies abdominal pain, Denies melena, Denies hematochezia, Denies change in bowel habits, Denies dyspepsia and Denies nausea Denies hematuria and Denies dysuria Musc Denies abnormal gait, Denies myalgias, Denies arthralgias, Denies numbness and Denies tingling Skin/Breast Denies rash, Denies unusual bruising and Denies wounds Neuro Denies abnormal gait, Denies dizziness, Denies headache(s), Denies memory loss, Denies numbness, Denies Sensory deficit (Neuro), Denies tingling and Denies weakness Psych Denies anxiety, Denies depression, Denies memory loss Endo Denies cold intolerance, Denies fatigue, Denies heat intolerance, Denies polydipsia and Denies polyuria Aller/Immun Denies wheezing Physical exam (Primary Care) Vital Signs: Last Vital Signs Temp 97.5 F 09/12/23 14:44 Pulse 77 09/12/23 14:44 Resp 13 09/12/23 14:44 BP 104/70 09/12/23 14:44 Pulse Ox 97 09/12/23 14:44 Oxygen Delivery Method Room Air 09/12/23 14:44 BMI result Body Mass Index 33.1 Tobacco/Smoking Status: Tobacco use Status Tobacco use date assessed 08/26/23 09/12/23 14:52 Patient Tobacco Use Status Current everyday Tobacco 09/12/23 14:52 Tobacco use type Cigarette 09/12/23 14:52 e-Cigarette/Vaping Use Currently Using 09/12/23 14:52 PHQ-9: PHQ-9 Score PHQ-9: Total score 15 09/12/23 14:52 Depression Screening Interpretation: Positive Depression Screening Follow-up: Existing condition and In treatment Thrive Assessment: Date of Thrive Assessment Date Thrive assessed 03/08/23 09/12/23 14:52 Const Other: General: no acute distress and well developed Nutritional Appearance: well nourished Orientation/consciousness: patient oriented x3 HENMT Head: Yes normocephalic and Yes atraumatic Eyes General: appearance normal, both eyes and all related structures Pupils: Equal, round and reactive pupils present EOM: EOMs intact bilaterally Resp Effort & Inspection: normal respiratory effort Auscultation: clear to auscultation bilaterally Cardio Rate: regular rate Rhythm: regular rhythm Heart sounds: S1 normal heart sound present, S2 normal heart sound present, no gallops, no murmurs and no rubs GI Palpation (GI): No Abdominal aortic bruit present, Soft to palpation, nontender, No hepatosplenomegaly present and No Rebound tenderness present Auscultation: normal bowel sounds General: Yes no CVA tenderness Back/Spine/Pelvis Back: no CVA tenderness Cervical Spine: cervical ROM normal and No Cervical spine tenderness Thoracic/Lumbar Spine: thoraco-lumbar ROM normal, No pain with thoraco-lumbar ROM, No thoracic spinal tenderness and No lumbar spinal tenderness Extrem General: Yes normal to inspection, No edema and No calf tenderness Skin General: warm and dry. Normal skin color. Normal skin turgor Neuro General: patient oriented x3, gait normal and no focal neuro deficit Cranial nerves: Yes Equal, round and reactive pupils present Cognition (Neuro): normal cognition Gait exam (Neuro): Normal gait present Sensory Exam: No Sensory deficit (Neuro) Psych Appearance: grossly normal Affect: normal affect Attitude: cooperative Thought process: Normal thought process present Assessment and Plan Assessment & Plan (1) Anxiety and depression: Code(s): F41.9 - Anxiety disorder, unspecified; F32.A - Depression, unspecified Plan: Improved anxiety and depression symptoms on current treatment regimen PHQ-9 and ROSMERY-7 scores revealed moderately severe depression and moderate anxiety respectively Continue to take fluoxetine as prescribed Routine exercise encouraged Follow-up in 3 months or return sooner with symptoms or concerns Verbalized understanding and agreed with treatment (2) Elevated fasting glucose: Code(s): R73.01 - Impaired fasting glucose Plan: Recent lab results reviewed with the patient Fasting glucose is normal, 75 (3) Mild anemia: Code(s): D64.9 - Anemia, unspecified Plan: Recent RBC and H&H remain slightly low, MCV is normal; normocytic anemia without symptoms Will monitor for symptoms and perform more testing or referred to Hematology as needed Follow-up with symptoms or concerns Verbalized understanding and agreed with the plan Coding Level of Care Code Est Pt Level 3 (24255) Diagnoses Anxiety and depression F41.9; F32.A Elevated fasting glucose R73.01 Mild anemia D64.9 Additional Codes ROSMERY-7 Assessment Billing - ROSMERY-7 Assessment Tool: ROSMERY-7 Assessment [id number] ([id number])
[2023-09-12 14:44] VITALS: BP 104/70; PULSE 77; RESP 13; TEMP 36.4; O2SAT 97; BMI 33.1
== END 2023-09-12 15:07 | disposition home or self-care (01) ==
PROVIDERS: PCP Nurse Practitioner Family; Visit Provider Nurse Practitioner Family
DX: R73.01 Impaired fasting glucose (principal); F41.9 Anxiety disorder, unspecified; F32.A Depression, unspecified; D64.9 Anemia, unspecified
CPT/HCPCS: 99213

== ENCOUNTER → 2025-02-05 09:33 | Outpatient (BNVA) | payer OTHER, SELFPAY | PROVIDERS: PCP Nurse Practitioner Family; Visit Provider Physician Assistant Medical | DX: S61.241A Puncture wound with foreign body of left index finger without damage to nail, initial encounter (principal); W29.4XXA Contact with nail gun, initial encounter | CPT/HCPCS: 73140; 99203 ==

== ENCOUNTER → 2025-02-07 14:55 | Outpatient (BNVA) | payer OTHER, SELFPAY | PROVIDERS: PCP Nurse Practitioner Family; Visit Provider Physician Assistant Medical | DX: S61.241A Puncture wound with foreign body of left index finger without damage to nail, initial encounter (principal); W29.4XXA Contact with nail gun, initial encounter; Z02.79 Encounter for issue of other medical certificate | CPT/HCPCS: 99213 ==